=== PATIENT | female | born 1935 | race Caucasian/White ===

== ENCOUNTER 2022-05-31 09:57 | Emergency (ER) | payer OTHER ==
[~2022-05-31] VITALS: Ht 149.9 cm; Wt 61.2 kg
[2022-05-31 09:59] VITALS: BP 100/70
--- NOTE | 2022-05-31 10:13 | NUR ---
BIBA BLS TO ER BED 12
--- NOTE | 2022-05-31 10:53 | NUR ---
Pt bib bls for rigid mass at RLQ. Pt denies pain. Has constipation, has not passed stool for 3-5 days. Pt is a/o x 4, vss, no ss of acute distress, breathing equal and unlabored, speech clear, labs obtained. has seen pt. Pt to CT.
[2022-05-31 11:31] LABS: APPEARANCE,URINE CLEAR (CLEAR); BILIRUBIN,URINE NEGATIVE (NEGATIVE); BLOOD, URINE NEGATIVE (NEGATIVE); COLOR,URINE YELLOW (YELLOW); LEUKOCYTE ESTERASE ,URINE SMALL (NEGATIVE); NITRITE, URINE NEGATIVE (NEGATIVE); UGLUCOSE NEGATIVE (NEGATIVE)
[2022-05-31 11:40] LABS: RBC,URINE 0-5 /HPF (0-5); WBC,URINE 0-5 /HPF (0-5)
[2022-05-31 11:54] LABS: BASOPHILS # (AUTO) 0.1 K/uL (0.00-0.22); BASOPHILS % (AUTO) 2.7 % (0.0-2.0); EOSINOPHILS # (AUTO) 0.1 K/uL (0-0.4); EOSINOPHILS % (AUTO) 2.8 % (0.0-4.0); HEMATOCRIT 41.8 % (36-48); LYMPHOCYTES # (AUTO) 1.7 K/uL (2.5-16.5); MEAN CORPUSCULAR HEMOGLOBIN 31 pg (27-31); MEAN CORPUSCULAR HGB CONC 33 g/dL (33-37); MEAN CORPUSCULAR VOLUME 93.2 fL (80-94); MONOCYTES # (AUTO) 0.4 K/uL (0.8-1.0); MONOCYTES % (AUTO) 9.8 % (1.7-9.3); NEUTROPHILS # (AUTO) 1.5 K/uL (1.8-7.7); NEUTROPHILS % (AUTO) 39.7 % (42.2-75.2); PLATELET COUNT (AUTO) 336 K/uL (140-450); RED BLOOD CELL COUNT(AUTO) 4.48 MIL/uL (4.20-5.40); WHITE BLOOD COUNT (AUTO) 3.8 K/uL (4.8-10.8)
[2022-05-31 12:36] LABS: ALBUMIN 4.6 g/dL (3.4-5.0); ANION GAP 14.6 (8-16); ASPARTATE AMINOTRANSFERASE 28 U/L (15-37); CHLORIDE 102 mmol/L (98-107); CREATININE 1.1 mg/dL (0.6-1.3); GLUCOSE 91 mg/dL (74-106); LIPASE 215 U/L (73-393); POTASSIUM 4.6 mmol/L (3.5-5.1); SODIUM SERUM 141 mmol/L (136-145); TOTAL BILIRUBIN 0.5 mg/dL (0.0-1.0); UREA NITROGEN, BLOOD 24 mg/dL (7-18)
--- NOTE | 2022-05-31 13:20 | NUR ---
Report given to Gracy at [facility]. Pick scheduled for 1430 by them.
--- NOTE | 2022-05-31 14:27 | NUR ---
Patient discharged with v/s stable. Written and verbal after care instructions given and explained. Patient verbalized understanding. Ambulatory with [facility]SP[facility] to car. All questions addressed prior to discharge. Advised to follow up with PMD.
[2022-05-31 14:29] VITALS: BP 136/62
== END 2022-05-31 14:26 ==
LOC: MED 09:57
DX: R10.31 Right lower quadrant pain (principal); Z90.710 Acquired absence of both cervix and uterus
CPT/HCPCS: 36415; 80053; 81001; 83690; 85025; 87086; 99285

== ENCOUNTER 2022-06-22 13:53 | Emergency (ER) | payer OTHER ==
[~2022-06-22] VITALS: Ht 162.6 cm; Wt 54.4 kg
--- NOTE | 2022-06-22 14:02 | NUR ---
PATIENT BIBA TO BED 5.
[2022-06-22 14:21] VITALS: BP 121/65
[2022-06-22 14:36] LABS: BASOPHILS % (AUTO) 0.6 % (0.0-2.0); EOSINOPHILS % (AUTO) 0.7 % (0.0-4.0); HEMATOCRIT 38.4 % (36-48); LYMPHOCYTES # (AUTO) 1.2 K/uL (2.5-16.5); LYMPHOCYTES % (AUTO) 56.9 % (20.5-51.1); MEAN CORPUSCULAR HEMOGLOBIN 31 pg (27-31); MEAN CORPUSCULAR HGB CONC 34 g/dL (33-37); MEAN CORPUSCULAR VOLUME 92.1 fL (80-94); MONOCYTES # (AUTO) 0.2 K/uL (0.8-1.0); MONOCYTES % (AUTO) 12.1 % (1.7-9.3); NEUTROPHILS # (AUTO) 0.6 K/uL (1.8-7.7); NEUTROPHILS % (AUTO) 29.7 % (42.2-75.2); PLATELET COUNT (AUTO) 203 K/uL (140-450); RED BLOOD CELL COUNT(AUTO) 4.17 MIL/uL (4.20-5.40); RED CELL DISTRIBUTION WIDTH 13.7 % (11.6-13.7); WHITE BLOOD COUNT (AUTO) 2.1 K/uL (4.8-10.8)
[2022-06-22 15:03] LABS: ANION GAP 15.2 (8-16); CHLORIDE 101 mmol/L (98-107); CREATININE 1.2 mg/dL (0.6-1.3); GLUCOSE 102 mg/dL (74-106); POTASSIUM 4.2 mmol/L (3.5-5.1); SODIUM SERUM 136 mmol/L (136-145); UREA NITROGEN, BLOOD 27 mg/dL (7-18)
--- NOTE | 2022-06-22 15:30 | NUR ---
87 Y/O FEMALE BIBA FROM [facility] C/O RLQ ABD PAIN AND DIARRHEA X1 WEEK. PER PT SHE HAS BEEN HAVING A MASS X1 MONTH IN THE RLQ. DENIES ANY VOMITING OR NAUSEA. DENIES FEVER, CHILLS. NKA PMH: HTN
--- NOTE | 2022-06-22 16:01 | NUR ---
PT TAKEN TO CT
[2022-06-22 16:48] VITALS: BP 121/45
--- NOTE | 2022-06-22 17:33 | NUR ---
Patient discharged with v/s stable. Written and verbal after care instructions ABOUT ABD BLOATING given and explained. Patient verbalized understanding. Ambulatory with steady gait. All questions addressed prior to discharge. Advised to follow up with PMD. INFORMED STAFF OF [facility] PT DISCHARGE, TRANSPORT ARRANGED
== END 2022-06-22 17:33 ==
LOC: MED 13:53
DX: R10.31 Right lower quadrant pain (principal); R14.0 Abdominal distension (gaseous); Z79.899 Other long term (current) drug therapy
CPT/HCPCS: 36415; 74177; 80048; 85025; 99285; Q9967

== ENCOUNTER 2022-09-20 15:06 | Emergency (ER) | payer OTHER ==
[~2022-09-20] VITALS: Ht 157.5 cm; Wt 49.9 kg
[2022-09-20 15:07] VITALS: BP 135/72
--- NOTE | 2022-09-20 15:11 | NUR ---
Patient BIBA to bed 7.
--- NOTE | 2022-09-20 15:40 | NUR ---
Patient being evaluated by physician at bedside.
--- NOTE | 2022-09-20 15:45 | NUR ---
Patient ambulated to restroom with assistance. Urine sample obtained.
--- NOTE | 2022-09-20 15:50 | NUR ---
Lab at bedside.
[2022-09-20 16:05] LABS: APPEARANCE,URINE CLEAR (CLEAR); BILIRUBIN,URINE NEGATIVE (NEGATIVE); BLOOD, URINE NEGATIVE (NEGATIVE); COLOR,URINE YELLOW (YELLOW); LEUKOCYTE ESTERASE ,URINE NEGATIVE (NEGATIVE); NITRITE, URINE NEGATIVE (NEGATIVE); PH,URINE 6.5 (5.0-9.0); UGLUCOSE NEGATIVE (NEGATIVE)
[2022-09-20 16:06] LABS: BASOPHILS # (AUTO) 0.1 K/uL (0.00-0.22); BASOPHILS % (AUTO) 1.4 % (0.0-2.0); EOSINOPHILS # (AUTO) 0.1 K/uL (0-0.4); EOSINOPHILS % (AUTO) 1.8 % (0.0-4.0); HEMATOCRIT 36.5 % (36-48); HEMOGLOBIN 12.1 g/dL (12.0-16.0); LYMPHOCYTES # (AUTO) 1.3 K/uL (2.5-16.5); MEAN CORPUSCULAR HEMOGLOBIN 32 pg (27-31); MEAN CORPUSCULAR HGB CONC 33 g/dL (33-37); MONOCYTES # (AUTO) 0.7 K/uL (0.8-1.0); MONOCYTES % (AUTO) 17.6 % (1.7-9.3); NEUTROPHILS # (AUTO) 1.9 K/uL (1.8-7.7); NEUTROPHILS % (AUTO) 47.2 % (42.2-75.2); PLATELET COUNT (AUTO) 372 K/uL (140-450); RED BLOOD CELL COUNT(AUTO) 3.84 MIL/uL (4.20-5.40); RED CELL DISTRIBUTION WIDTH 12.6 % (11.6-13.7); WHITE BLOOD COUNT (AUTO) 4.1 K/uL (4.8-10.8)
--- NOTE | 2022-09-20 16:14 | NUR ---
X-Ray at bedside.
[2022-09-20 16:22] LABS: ALBUMIN 3.4 g/dL (3.4-5.0); ASPARTATE AMINOTRANSFERASE 19 U/L (15-37); CARBON DIOXIDE 28.3 mmol/L (21-32); CHLORIDE 103 mmol/L (98-107); GLUCOSE 105 mg/dL (74-106); POTASSIUM 4.3 mmol/L (3.5-5.1); SODIUM SERUM 139 mmol/L (136-145); TOTAL BILIRUBIN 0.4 mg/dL (0.0-1.0); UREA NITROGEN, BLOOD 20 mg/dL (7-18)
[2022-09-20 16:29] LABS: LIPASE 221 U/L (73-393)
[2022-09-20] MEDS ORDERED: ACET-2619 PO (17:00)
--- NOTE | 2022-09-20 18:01 | NUR ---
Patient was assisted to the restroom.
[2022-09-20 18:22] VITALS: BP 143/58
--- NOTE | 2022-09-20 18:22 | NUR ---
Patient discharged with v/s stable. Written and verbal after care instructions given. Patient alert, oriented and verbalized understanding of instructions. Ambulance Transport with to skilled nursing. All questions addressed prior to discharge. ID band removed. Patient advised to follow up with PMD. Rx of Tylenol given. Opportunity to ask questions provided and answered.
== END 2022-09-20 18:22 | disposition home or self-care (01) ==
LOC: MED 15:06
DX: J18.9 Pneumonia, unspecified organism (principal); M79.10 Myalgia, unspecified site; R50.9 Fever, unspecified; R05.9 Cough, unspecified; I10 Essential (primary) hypertension; F03.90 Unspecified dementia, unspecified severity, without behavioral disturbance, psychotic disturbance, mood disturbance, and anxiety; F32.9 Major depressive disorder, single episode, unspecified; Z85.828 Personal history of other malignant neoplasm of skin; Z79.899 Other long term (current) drug therapy; Z90.710 Acquired absence of both cervix and uterus; Z20.822 Contact with and (suspected) exposure to COVID-19
CPT/HCPCS: 36415; 71045; 80053; 81003; 83605; 83690; 83880; 84484; 85025; 87040; 93005; 99285

== ENCOUNTER 2022-12-10 19:00 | Emergency (ER) | payer OTHER ==
[~2022-12-10] VITALS: Ht 157.5 cm; Wt 46.3 kg
[~2022-12-10 19:00] MED LIST: ACET-2619 PO
[2022-12-10 19:03] VITALS: BP 108/62; PULSE 60; RESP 15; TEMP 98; O2SAT 97
[2022-12-10] MEDS ORDERED: NACL 0.9% 500 ML IV ONE (19:35)
[2022-12-10 20:00] VITALS: BP 137/79; PULSE 78; RESP 18; O2SAT 98
[2022-12-10 20:05] LABS: APPEARANCE,URINE CLEAR (CLEAR); BILIRUBIN,URINE NEGATIVE (NEGATIVE); BLOOD, URINE NEGATIVE (NEGATIVE); COLOR,URINE YELLOW (YELLOW); LEUKOCYTE ESTERASE ,URINE NEGATIVE (NEGATIVE); NITRITE, URINE NEGATIVE (NEGATIVE); PH,URINE 5.5 (5.0-9.0); PROTEIN,URINE NEGATIVE (NEGATIVE); UGLUCOSE NEGATIVE (NEGATIVE); UROBILINOGEN,URINE 0.2 EU/dL (0.2 - 1)
[2022-12-10 20:06] LABS: HEMOGLOBIN 12.8 g/dL (12.0-16.0)
[2022-12-10 20:12] LABS: BASOPHILS # (AUTO) 0.1 K/uL (0.00-0.22); BASOPHILS % (AUTO) 1.7 % (0.0-2.0); EOSINOPHILS # (AUTO) 0.2 K/uL (0-0.4); EOSINOPHILS % (AUTO) 3.9 % (0.0-4.0); HEMATOCRIT 38.8 % (36-48); LYMPHOCYTES % (AUTO) 52.4 % (20.5-51.1); MEAN CORPUSCULAR HEMOGLOBIN 30 pg (27-31); MEAN CORPUSCULAR HGB CONC 33 g/dL (33-37); MEAN CORPUSCULAR VOLUME 89.6 fL (80-94); MONOCYTES # (AUTO) 0.5 K/uL (0.8-1.0); MONOCYTES % (AUTO) 13.1 % (1.7-9.3); NEUTROPHILS # (AUTO) 1.1 K/uL (1.8-7.7); NEUTROPHILS % (AUTO) 28.9 % (42.2-75.2); PLATELET COUNT (AUTO) 277 K/uL (140-450); RED BLOOD CELL COUNT(AUTO) 4.34 MIL/uL (4.20-5.40); RED CELL DISTRIBUTION WIDTH 14.2 % (11.6-13.7); WHITE BLOOD COUNT (AUTO) 3.9 K/uL (4.8-10.8)
[2022-12-10 20:20] LABS: ALANINE AMINOTRANSFERASE 17 U/L (12-78); ALBUMIN 3.7 g/dL (3.4-5.0); ALKALINE PHOSPHATASE 121 U/L (50-136); ANION GAP 13.5 (8-16); ASPARTATE AMINOTRANSFERASE 19 U/L (15-37); CALCIUM 8.6 mg/dL (8.5-10.1); CARBON DIOXIDE 26.4 mmol/L (21-32); CHLORIDE 105 mmol/L (98-107); CREATININE 1.3 mg/dL (0.6-1.3); GLUCOSE 88 mg/dL (74-106); LIPASE 322 U/L (73-393); POTASSIUM 3.9 mmol/L (3.5-5.1); SODIUM SERUM 141 mmol/L (136-145); TOTAL BILIRUBIN 0.2 mg/dL (0.0-1.0); TOTAL PROTEIN, SERUM 7.5 g/dL (6.4-8.2); UREA NITROGEN, BLOOD 22 mg/dL (7-18)
== END 2022-12-10 22:34 | disposition home or self-care (01) ==
LOC: MED 19:00
DX: R10.9 Unspecified abdominal pain (principal); R19.7 Diarrhea, unspecified; F03.90 Unspecified dementia, unspecified severity, without behavioral disturbance, psychotic disturbance, mood disturbance, and anxiety; I10 Essential (primary) hypertension; Z79.899 Other long term (current) drug therapy; Z85.828 Personal history of other malignant neoplasm of skin; Z90.710 Acquired absence of both cervix and uterus
CPT/HCPCS: 36415; 74176; 80053; 81003; 83690; 85025; 96360; 99284; J7030

== ENCOUNTER 2023-01-07 13:10 | Emergency (ER) | payer OTHER ==
[~2023-01-07] VITALS: Ht 162.6 cm; Wt 63.5 kg
[2023-01-07 13:32] VITALS: BP 114/56; PULSE 56; RESP 18; TEMP 98; O2SAT 98
[2023-01-07 14:40] LABS: BASOPHILS # (AUTO) 0.1 K/uL (0.00-0.22); BASOPHILS % (AUTO) 1.5 % (0.0-2.0); EOSINOPHILS # (AUTO) 0.1 K/uL (0-0.4); HEMOGLOBIN 12.2 g/dL (12.0-16.0); LYMPHOCYTES # (AUTO) 1.6 K/uL (2.5-16.5); LYMPHOCYTES % (AUTO) 41.7 % (20.5-51.1); MEAN CORPUSCULAR HEMOGLOBIN 30 pg (27-31); MEAN CORPUSCULAR HGB CONC 33 g/dL (33-37); MONOCYTES # (AUTO) 0.5 K/uL (0.8-1.0); MONOCYTES % (AUTO) 13.3 % (1.7-9.3); NEUTROPHILS # (AUTO) 1.6 K/uL (1.8-7.7); NEUTROPHILS % (AUTO) 40.5 % (42.2-75.2); PLATELET COUNT (AUTO) 286 K/uL (140-450); RED BLOOD CELL COUNT(AUTO) 4.07 MIL/uL (4.20-5.40); RED CELL DISTRIBUTION WIDTH 17.1 % (11.6-13.7); WHITE BLOOD COUNT (AUTO) 3.9 K/uL (4.8-10.8)
[2023-01-07 14:50] LABS: APPEARANCE,URINE CLEAR (CLEAR); BILIRUBIN,URINE NEGATIVE (NEGATIVE); BLOOD, URINE NEGATIVE (NEGATIVE); COLOR,URINE YELLOW (YELLOW); LEUKOCYTE ESTERASE ,URINE NEGATIVE (NEGATIVE); NITRITE, URINE NEGATIVE (NEGATIVE); PROTEIN,URINE NEGATIVE (NEGATIVE); UGLUCOSE NEGATIVE (NEGATIVE); UROBILINOGEN,URINE 0.2 EU/dL (0.2 - 1)
[2023-01-07 14:59] LABS: ALANINE AMINOTRANSFERASE 17 U/L (12-78); ALBUMIN 3.5 g/dL (3.4-5.0); ALKALINE PHOSPHATASE 96 U/L (50-136); ANION GAP 10.2 (8-16); ASPARTATE AMINOTRANSFERASE 18 U/L (15-37); CHLORIDE 107 mmol/L (98-107); CREATININE 1.3 mg/dL (0.6-1.3); GLUCOSE 95 mg/dL (74-106); LIPASE 176 U/L (73-393); POTASSIUM 4.2 mmol/L (3.5-5.1); SODIUM SERUM 140 mmol/L (136-145); TOTAL BILIRUBIN 0.3 mg/dL (0.0-1.0); TOTAL PROTEIN, SERUM 6.9 g/dL (6.4-8.2); UREA NITROGEN, BLOOD 20 mg/dL (7-18)
[2023-01-07] MEDS ORDERED: LOPE-289 PO (15:52)
[2023-01-07] MEDS ORDERED: CIPR500T4 PO (15:52)
[2023-01-07] MEDS ORDERED: IBUP-2213 PO (15:52)
[2023-01-07 15:56] VITALS: BP 114/56; PULSE 56; RESP 18; TEMP 98; O2SAT 98
== END 2023-01-07 16:01 | disposition home or self-care (01) ==
LOC: MED 13:10
DX: R10.30 Lower abdominal pain, unspecified (principal); R19.7 Diarrhea, unspecified; I10 Essential (primary) hypertension; F03.90 Unspecified dementia, unspecified severity, without behavioral disturbance, psychotic disturbance, mood disturbance, and anxiety; Z79.899 Other long term (current) drug therapy; Z90.710 Acquired absence of both cervix and uterus
CPT/HCPCS: 36415; 80053; 81003; 83690; 85025; 99284

== ENCOUNTER 2023-01-29 20:12 | Inpatient (IN) | payer OTHER ==
[~2023-01-29] VITALS: Ht 152.4 cm; Wt 55.8 kg
[~2023-01-29 20:12] MED LIST changes: +CIPR500T4 PO; +IBUP-2213 PO; +LOPE-289 PO
[2023-01-29 20:25] VITALS: BP 124/88; PULSE 58; RESP 16; TEMP 97.5; O2SAT 98
[2023-01-29] MEDS ORDERED: cefTRIAXone 1,000 MG in DEXT 5% MINI-BAG PLUS 50 ML IV ONE (20:30)
[2023-01-29] MEDS ORDERED: NACL 0.9% 1,000 ML IV SCH (20:30)
[2023-01-29 20:35] VITALS: O2SAT 97
[2023-01-29 21:24] LABS: BASOPHILS # (AUTO) 0.1 K/uL (0.00-0.22); BASOPHILS % (AUTO) 1.9 % (0.0-2.0); EOSINOPHILS # (AUTO) 0.1 K/uL (0-0.4); EOSINOPHILS % (AUTO) 2.6 % (0.0-4.0); HEMATOCRIT 34.2 % (36-48); HEMOGLOBIN 11.5 g/dL (12.0-16.0); LYMPHOCYTES # (AUTO) 1.2 K/uL (2.5-16.5); LYMPHOCYTES % (AUTO) 27.1 % (20.5-51.1); MEAN CORPUSCULAR HEMOGLOBIN 31 pg (27-31); MEAN CORPUSCULAR HGB CONC 34 g/dL (33-37); MEAN CORPUSCULAR VOLUME 91.7 fL (80-94); MONOCYTES # (AUTO) 0.4 K/uL (0.8-1.0); MONOCYTES % (AUTO) 9.4 % (1.7-9.3); NEUTROPHILS # (AUTO) 2.6 K/uL (1.8-7.7); PLATELET COUNT (AUTO) 278 K/uL (140-450); RED BLOOD CELL COUNT(AUTO) 3.74 MIL/uL (4.20-5.40); RED CELL DISTRIBUTION WIDTH 16.3 % (11.6-13.7); WHITE BLOOD COUNT (AUTO) 4.4 K/uL (4.8-10.8)
[2023-01-29 21:36] LABS: INR 0.95 (0.8-1.2); PARTIAL THROMBOPLASTIN TIME 26.1 secs (22-35.6)
[2023-01-29 21:39] LABS: ALANINE AMINOTRANSFERASE 15 U/L (12-78); ALBUMIN 3.4 g/dL (3.4-5.0); ALKALINE PHOSPHATASE 90 U/L (50-136); ANION GAP 13.3 (8-16); ASPARTATE AMINOTRANSFERASE 14 U/L (15-37); CALCIUM 8.6 mg/dL (8.5-10.1); CARBON DIOXIDE 24.6 mmol/L (21-32); CHLORIDE 106 mmol/L (98-107); CREATININE 1.1 mg/dL (0.6-1.3); GLUCOSE 135 mg/dL (74-106); POTASSIUM 3.9 mmol/L (3.5-5.1); SODIUM SERUM 140 mmol/L (136-145); TOTAL BILIRUBIN 0.2 mg/dL (0.0-1.0); TOTAL PROTEIN, SERUM 6.7 g/dL (6.4-8.2); UREA NITROGEN, BLOOD 22 mg/dL (7-18)
[2023-01-29 21:44] LABS: LACTIC ACID 0.7 mmol/L (0.4-2.0)
[2023-01-29] MEDS ORDERED: cefTRIAXone 1,000 MG VIAL ONE (22:06)
[2023-01-29 23:47] LABS: APPEARANCE,URINE CLEAR (CLEAR); BILIRUBIN,URINE NEGATIVE (NEGATIVE); BLOOD, URINE NEGATIVE (NEGATIVE); COLOR,URINE YELLOW (YELLOW); LEUKOCYTE ESTERASE ,URINE NEGATIVE (NEGATIVE); NITRITE, URINE NEGATIVE (NEGATIVE); PROTEIN,URINE NEGATIVE (NEGATIVE); UGLUCOSE NEGATIVE (NEGATIVE); UROBILINOGEN,URINE 0.2 EU/dL (0.2 - 1)
[2023-01-30 00:09] LABS: BACTERIA,URINE OCCASSIONAL /HPF (None Seen); RBC,URINE NONE SEEN /HPF (0-5); WBC,URINE NONE SEEN /HPF (0-5)
[2023-01-30 01:22] VITALS: O2SAT 97
[2023-01-30 04:07] VITALS: O2SAT 97
[2023-01-30] MEDS ORDERED: ZOLPIDEM 5 MG TAB PO PRN (08:20)
[2023-01-30] MEDS: DEXT 5% /NACL 0.9% 1,000 ML IV SCH ×2 (08:20→20:06)
[2023-01-30] MEDS ORDERED: DOCUSATE SODIUM 100 MG GELCAP PO PRN (08:20)
[2023-01-30] MEDS ORDERED: ACETAMINOPHEN 325 MG TAB PO PRN (08:20)
[2023-01-30] MEDS ORDERED: HYDROcodone/APAP 7.5/325 MG 1 TAB PO PRN (08:20)
[2023-01-30] MEDS ORDERED: ONDANSETRON 4 MG/2 ML VIAL IM/IVP PRN (08:20)
[2023-01-30] MEDS ORDERED: POTASSIUM CHLORIDE 10 MEQ TABER PO PRN (08:20)
[2023-01-30] MEDS ORDERED: guaiFENesin DM 200/20 MG-10 ML 10 ML UDC PO PRN (08:20)
[2023-01-30 09:42] LABS: INR 0.96 (0.8-1.2); PARTIAL THROMBOPLASTIN TIME 27.1 secs (22-35.6); PROTHROMBIN TIME 10.1 secs (10.8-13.4)
[2023-01-30 09:53] LABS: CHOL/HDL RATIO 2.8 (1-4.5); FREE T4 (FREE THYROXINE) 0.83 ng/dL (0.76-1.46); MAGNESIUM 2.1 mg/dL (1.8-2.4); PHOSPHORUS 3.1 mg/dL (2.5-4.9); THYROID STIMULATING HORMONE 1.68 uIU/mL (0.34-3.74)
[2023-01-30] MEDS: PANTOPRAZOLE 40 MG TABEC PO SCH (10:11)
[2023-01-30] MEDS ORDERED: HALOPERIDOL IM 5 MG/ML VIAL IM ONE (23:35)
[2023-01-31] MEDS: DEXT 5% /NACL 0.9% 1,000 ML IV SCH (07:52)
[2023-01-31 07:58] LABS: BASOPHILS # (AUTO) 0.1 K/uL (0.00-0.22); BASOPHILS % (AUTO) 2.6 % (0.0-2.0); EOSINOPHILS # (AUTO) 0.2 K/uL (0-0.4); EOSINOPHILS % (AUTO) 5.5 % (0.0-4.0); HEMATOCRIT 37.3 % (36-48); HEMOGLOBIN 12.4 g/dL (12.0-16.0); LYMPHOCYTES # (AUTO) 1.8 K/uL (2.5-16.5); LYMPHOCYTES % (AUTO) 52.3 % (20.5-51.1); MEAN CORPUSCULAR HEMOGLOBIN 31 pg (27-31); MEAN CORPUSCULAR HGB CONC 33 g/dL (33-37); MEAN CORPUSCULAR VOLUME 91.6 fL (80-94); MONOCYTES # (AUTO) 0.4 K/uL (0.8-1.0); MONOCYTES % (AUTO) 11.9 % (1.7-9.3); NEUTROPHILS % (AUTO) 27.7 % (42.2-75.2); PLATELET COUNT (AUTO) 287 K/uL (140-450); RED BLOOD CELL COUNT(AUTO) 4.08 MIL/uL (4.20-5.40); RED CELL DISTRIBUTION WIDTH 16.6 % (11.6-13.7); WHITE BLOOD COUNT (AUTO) 3.5 K/uL (4.8-10.8)
[2023-01-31 08:39] LABS: ANION GAP 12.2 (8-16); CALCIUM 8.7 mg/dL (8.5-10.1); CHLORIDE 108 mmol/L (98-107); CREATININE 0.9 mg/dL (0.6-1.3); GLUCOSE 88 mg/dL (74-106); POTASSIUM 4.2 mmol/L (3.5-5.1); SODIUM SERUM 142 mmol/L (136-145); UREA NITROGEN, BLOOD 15 mg/dL (7-18)
[2023-01-31 09:00] VITALS: RESP 18; O2SAT 95; O2SAT 98
[2023-01-31 09:07] LABS: T4 (THYROXINE) 5.1 ug/dL (4.5-12.0)
[2023-01-31] MEDS: PANTOPRAZOLE 40 MG TABEC PO SCH (09:15)
[2023-01-31 12:00] VITALS: BP 153/92; PULSE 56; RESP 18; TEMP 97.7; O2SAT 98
[2023-01-31 15:09] VITALS: O2SAT 99
[2023-01-31 16:00] VITALS: BP 115/58; PULSE 57; RESP 18; TEMP 97.6; O2SAT 99
[2023-01-31 20:00] VITALS: PULSE 61; RESP 18; O2SAT 99
[2023-02-01] VITALS: BP 117/61; PULSE 61; RESP 18; TEMP 98; O2SAT 99
[2023-02-01] MEDS: DEXT 5% /NACL 0.9% 1,000 ML IV SCH ×2 (00:19→08:11)
[2023-02-01 05:33] LABS: BASOPHILS # (AUTO) 0.1 K/uL (0.00-0.22); BASOPHILS % (AUTO) 1.9 % (0.0-2.0); EOSINOPHILS # (AUTO) 0.2 K/uL (0-0.4); EOSINOPHILS % (AUTO) 4.7 % (0.0-4.0); LYMPHOCYTES # (AUTO) 2.1 K/uL (2.5-16.5); LYMPHOCYTES % (AUTO) 54.6 % (20.5-51.1); MEAN CORPUSCULAR HEMOGLOBIN 31 pg (27-31); MEAN CORPUSCULAR HGB CONC 33 g/dL (33-37); MEAN CORPUSCULAR VOLUME 91.2 fL (80-94); MONOCYTES # (AUTO) 0.5 K/uL (0.8-1.0); NEUTROPHILS # (AUTO) 1.1 K/uL (1.8-7.7); NEUTROPHILS % (AUTO) 26.8 % (42.2-75.2); PLATELET COUNT (AUTO) 283 K/uL (140-450); RED BLOOD CELL COUNT(AUTO) 3.94 MIL/uL (4.20-5.40); WHITE BLOOD COUNT (AUTO) 3.9 K/uL (4.8-10.8)
[2023-02-01 05:49] LABS: ANION GAP 11.4 (8-16); CALCIUM 8.5 mg/dL (8.5-10.1); CARBON DIOXIDE 26.6 mmol/L (21-32); CHLORIDE 108 mmol/L (98-107); CREATININE 0.9 mg/dL (0.6-1.3); GLUCOSE 90 mg/dL (74-106); SODIUM SERUM 142 mmol/L (136-145); UREA NITROGEN, BLOOD 19 mg/dL (7-18)
[2023-02-01 06:08] LABS: HEMOGLOBIN A1C 5.4 % (4.8-5.6)
[2023-02-01] MEDS: PANTOPRAZOLE 40 MG TABEC PO SCH (08:10)
[2023-02-01 08:48] VITALS: BP 110/50; PULSE 61; RESP 16; TEMP 96.7; O2SAT 95
[2023-02-01 08:51] VITALS: PULSE 61; RESP 16; O2SAT 95
[2023-02-01 11:15] VITALS: O2SAT 96
== END 2023-02-01 12:54 | DRG 640 ==
LOC: MED 20:12 → MTU 01-30 02:48 → MED 01-30 02:48 → MTU 01-31 05:27
PROVIDERS: ADMIT Family Medicine; ATTEND Family Medicine
DX: E86.0 Dehydration (principal); G93.41 Metabolic encephalopathy; F03.90 Unspecified dementia, unspecified severity, without behavioral disturbance, psychotic disturbance, mood disturbance, and anxiety; D64.9 Anemia, unspecified; I10 Essential (primary) hypertension; Z91.81 History of falling; Z85.828 Personal history of other malignant neoplasm of skin
CPT/HCPCS: 36415; 70450; 71045; 80048; 80053; 81001; 82150; 83036; 83605; 83690; 83735; 83880; 84100; 84436; 84439; 84443; 84479; 84484; 85025; 85610; 85730; 87040; 87081; 87086; 93005; 96361; 96365; 96372; 99285; J0696; J1630

== ENCOUNTER 2023-02-14 20:28 | Emergency (ER) | payer OTHER ==
[~2023-02-14] VITALS: Ht 157.5 cm; Wt 56.7 kg
[~2023-02-14 20:28] MED LIST changes: -IBUP-2213 PO
[2023-02-14 20:30] VITALS: BP 115/61; PULSE 58; RESP 16; TEMP 98; O2SAT 95
[2023-02-14] MEDS ORDERED: PRED50TA2 PO (21:18)
[2023-02-14] MEDS ORDERED: DIPH25TA53 PO (21:18)
== END 2023-02-14 22:38 | disposition home or self-care (01) ==
LOC: MED 20:28
DX: R21 Rash and other nonspecific skin eruption (principal); F03.90 Unspecified dementia, unspecified severity, without behavioral disturbance, psychotic disturbance, mood disturbance, and anxiety; I10 Essential (primary) hypertension; Z79.899 Other long term (current) drug therapy
CPT/HCPCS: 99283

== ENCOUNTER 2023-06-28 13:53 | Inpatient (IN) | payer OTHER ==
[~2023-06-28] VITALS: Ht 149.9 cm; Wt 45.4 kg
[~2023-06-28 13:53] MED LIST changes: +DIPH25TA53 PO; +PRED50TA2 PO
[2023-06-28 13:57] VITALS: BP 132/63; PULSE 82; RESP 18; TEMP 98; O2SAT 95
[2023-06-28 14:40] LABS: BASOPHILS # (AUTO) 0.1 K/uL (0.00-0.22); BASOPHILS % (AUTO) 1.9 % (0.0-2.0); EOSINOPHILS # (AUTO) 0.1 K/uL (0-0.4); EOSINOPHILS % (AUTO) 2.6 % (0.0-4.0); HEMATOCRIT 35.9 % (36-48); HEMOGLOBIN 12.1 g/dL (12.0-16.0); LYMPHOCYTES # (AUTO) 1.6 K/uL (2.5-16.5); LYMPHOCYTES % (AUTO) 38.7 % (20.5-51.1); MEAN CORPUSCULAR HEMOGLOBIN 32 pg (27-31); MEAN CORPUSCULAR HGB CONC 34 g/dL (33-37); MEAN CORPUSCULAR VOLUME 95.2 fL (80-94); MONOCYTES # (AUTO) 0.4 K/uL (0.8-1.0); MONOCYTES % (AUTO) 9.8 % (1.7-9.3); NEUTROPHILS # (AUTO) 1.9 K/uL (1.8-7.7); PLATELET COUNT (AUTO) 265 K/uL (140-450); RED BLOOD CELL COUNT(AUTO) 3.77 MIL/uL (4.20-5.40); RED CELL DISTRIBUTION WIDTH 14.7 % (11.6-13.7)
[2023-06-28 15:02] LABS: ALANINE AMINOTRANSFERASE 11 U/L (12-78); ALBUMIN 3.2 g/dL (3.4-5.0); ALKALINE PHOSPHATASE 80 U/L (50-136); ANION GAP 9.1 (8-16); ASPARTATE AMINOTRANSFERASE 15 U/L (15-37); CALCIUM 8.9 mg/dL (8.5-10.1); CARBON DIOXIDE 27.7 mmol/L (21-32); CHLORIDE 109 mmol/L (98-107); CREATININE 0.9 mg/dL (0.6-1.3); GLUCOSE 100 mg/dL (74-106); POTASSIUM 4.8 mmol/L (3.5-5.1); SODIUM SERUM 141 mmol/L (136-145); TOTAL BILIRUBIN 0.4 mg/dL (0.0-1.0); TOTAL PROTEIN, SERUM 7.2 g/dL (6.4-8.2); UREA NITROGEN, BLOOD 12 mg/dL (7-18)
[2023-06-28 15:09] LABS: LIPASE 45 U/L (16-77)
[2023-06-28] MEDS ORDERED: ACET-2619 PO (16:56)
[2023-06-28] MEDS ORDERED: AMLO2.5T PO (16:57)
[2023-06-28] MEDS ORDERED: CYCL-711 PO (16:58)
[2023-06-28] MEDS ORDERED: MEMA5TAB PO (16:59)
[2023-06-28] MEDS ORDERED: SERT25TA PO (17:00)
[2023-06-28] MEDS ORDERED: ACETAMINOPHEN 325 MG TAB PO PRN (17:50)
[2023-06-28] MEDS ORDERED: POLYETHYLENE GLYCOL 17 GM/PKT PO PRN (17:50)
[2023-06-28] MEDS ORDERED: MAG SULF 2000 MG/WATER PREMIX 50 ML IV PRN (17:50)
[2023-06-28] MEDS ORDERED: KCL 20 MEQ IN 100 mL PREMIX 200 ML IV PRN (17:50)
[2023-06-28] MEDS ORDERED: ONDANSETRON 4 MG/2 ML VIAL IVP PRN (17:50)
[2023-06-28] MEDS ORDERED: MORPHINE SULFATE 2 MG/ML SYR IVP PRN (17:50)
[2023-06-28] MEDS: DEXT 5% / NACL 0.45% 1,000 ML IV SCH (20:00)
[2023-06-28 20:25] VITALS: PULSE 58; RESP 17; O2SAT 97
[2023-06-28] MEDS: MELATONIN 3 MG TAB PO PRN (23:56)
[2023-06-29 04:00] VITALS: BP 146/64; PULSE 52; PULSE 95; RESP 16; TEMP 97.9; O2SAT 93
[2023-06-29] MEDS: HYDROcodone/APAP 5/325 MG 1 TAB TAB PO PRN (05:34)
[2023-06-29 06:42] LABS: BASOPHILS # (AUTO) 0.1 K/uL (0.00-0.22); BASOPHILS % (AUTO) 1.3 % (0.0-2.0); EOSINOPHILS # (AUTO) 0.1 K/uL (0-0.4); EOSINOPHILS % (AUTO) 2.4 % (0.0-4.0); HEMATOCRIT 35.8 % (36-48); LYMPHOCYTES # (AUTO) 1.9 K/uL (2.5-16.5); LYMPHOCYTES % (AUTO) 37.6 % (20.5-51.1); MEAN CORPUSCULAR HEMOGLOBIN 32 pg (27-31); MEAN CORPUSCULAR HGB CONC 34 g/dL (33-37); MEAN CORPUSCULAR VOLUME 95.1 fL (80-94); MONOCYTES # (AUTO) 0.5 K/uL (0.8-1.0); MONOCYTES % (AUTO) 10.4 % (1.7-9.3); NEUTROPHILS # (AUTO) 2.4 K/uL (1.8-7.7); NEUTROPHILS % (AUTO) 48.3 % (42.2-75.2); PLATELET COUNT (AUTO) 251 K/uL (140-450); RED BLOOD CELL COUNT(AUTO) 3.76 MIL/uL (4.20-5.40); RED CELL DISTRIBUTION WIDTH 14.3 % (11.6-13.7)
[2023-06-29 07:04] LABS: ALANINE AMINOTRANSFERASE 11 U/L (12-78); ALBUMIN 3.2 g/dL (3.4-5.0); ALKALINE PHOSPHATASE 78 U/L (50-136); ANION GAP 12.8 (8-16); ASPARTATE AMINOTRANSFERASE 16 U/L (15-37); CALCIUM 8.9 mg/dL (8.5-10.1); CARBON DIOXIDE 25.3 mmol/L (21-32); CHLORIDE 107 mmol/L (98-107); CREATININE 0.8 mg/dL (0.6-1.3); GLUCOSE 93 mg/dL (74-106); MAGNESIUM 2.1 mg/dL (1.8-2.4); PHOSPHORUS 3.7 mg/dL (2.5-4.9); POTASSIUM 4.1 mmol/L (3.5-5.1); SODIUM SERUM 141 mmol/L (136-145); TOTAL BILIRUBIN 0.3 mg/dL (0.0-1.0); TOTAL PROTEIN, SERUM 7.1 g/dL (6.4-8.2); UREA NITROGEN, BLOOD 10 mg/dL (7-18)
[2023-06-29 08:00] VITALS: BP 120/57; PULSE 54; RESP 18; TEMP 97.7; O2SAT 97
[2023-06-29 10:10] VITALS: PULSE 52; RESP 18; O2SAT 97
[2023-06-29 11:46] VITALS: BP_SYST 121; BP_SYST 147; BP_SYST 154; BP_DIAS 58; BP_DIAS 65; BP_DIAS 67; PULSE 57; RESP 18; TEMP 97.3; O2SAT 99
[2023-06-29 16:34] VITALS: BP 150/74; PULSE 68; RESP 18; TEMP 97; O2SAT 97
[2023-06-29 20:00] VITALS: BP 105/65; PULSE 71; RESP 18; TEMP 97.4; O2SAT 94; O2SAT 97
[2023-06-29] MEDS: MEMANTINE 10 MG TAB PO SCH (20:13)
[2023-06-30] VITALS (8 sets, daily range): BP systolic 85–124; BP diastolic 50–76; PULSE 56–68; RESP 18–19; TEMP 97.4–97.9; O2SAT 96–98
[2023-06-30 06:43] LABS: BASOPHILS # (AUTO) 0.1 K/uL (0.00-0.22); BASOPHILS % (AUTO) 1.9 % (0.0-2.0); EOSINOPHILS # (AUTO) 0.1 K/uL (0-0.4); EOSINOPHILS % (AUTO) 2.8 % (0.0-4.0); HEMATOCRIT 35.5 % (36-48); HEMOGLOBIN 12.1 g/dL (12.0-16.0); LYMPHOCYTES # (AUTO) 1.8 K/uL (2.5-16.5); LYMPHOCYTES % (AUTO) 48.7 % (20.5-51.1); MEAN CORPUSCULAR HEMOGLOBIN 32 pg (27-31); MEAN CORPUSCULAR HGB CONC 34 g/dL (33-37); MEAN CORPUSCULAR VOLUME 94.3 fL (80-94); MONOCYTES # (AUTO) 0.5 K/uL (0.8-1.0); MONOCYTES % (AUTO) 12.6 % (1.7-9.3); NEUTROPHILS # (AUTO) 1.3 K/uL (1.8-7.7); PLATELET COUNT (AUTO) 256 K/uL (140-450); RED BLOOD CELL COUNT(AUTO) 3.76 MIL/uL (4.20-5.40); RED CELL DISTRIBUTION WIDTH 14.5 % (11.6-13.7); WHITE BLOOD COUNT (AUTO) 3.7 K/uL (4.8-10.8)
[2023-06-30 07:06] LABS: ALANINE AMINOTRANSFERASE 15 U/L (12-78); ALBUMIN 3.2 g/dL (3.4-5.0); ALKALINE PHOSPHATASE 78 U/L (50-136); ANION GAP 14.8 (8-16); ASPARTATE AMINOTRANSFERASE 15 U/L (15-37); CALCIUM 8.9 mg/dL (8.5-10.1); CARBON DIOXIDE 24.5 mmol/L (21-32); CHLORIDE 105 mmol/L (98-107); CREATININE 1.1 mg/dL (0.6-1.3); GLUCOSE 92 mg/dL (74-106); MAGNESIUM 2.1 mg/dL (1.8-2.4); PHOSPHORUS 4.4 mg/dL (2.5-4.9); POTASSIUM 4.3 mmol/L (3.5-5.1); SODIUM SERUM 140 mmol/L (136-145); TOTAL BILIRUBIN 0.5 mg/dL (0.0-1.0); TOTAL PROTEIN, SERUM 7.2 g/dL (6.4-8.2); UREA NITROGEN, BLOOD 25 mg/dL (7-18)
[2023-06-30] MEDS: SERTRALINE 50 MG TAB PO SCH (08:17)
[2023-06-30] MEDS: amLODIPine 5 MG TAB PO SCH (08:20)
[2023-06-30] MEDS: NACL 0.9% 500 ML IV ONE (14:03)
[2023-07-01] MEDS ORDERED: ACET-10509 PO (04:44)
== END 2023-06-30 15:24 | disposition home or self-care (01) | DRG 312 ==
LOC: MED 13:53 → MTU 17:48
PROVIDERS: ADMIT Family Medicine; ATTEND Family Medicine
DX: I95.1 Orthostatic hypotension (principal); S00.03XA Contusion of scalp, initial encounter; R00.1 Bradycardia, unspecified; F03.90 Unspecified dementia, unspecified severity, without behavioral disturbance, psychotic disturbance, mood disturbance, and anxiety; I10 Essential (primary) hypertension; F32.A Depression, unspecified; Z85.828 Personal history of other malignant neoplasm of skin
CPT/HCPCS: 36415; 70450; 71045; 73030; 80053; 83690; 83735; 83880; 84100; 84484; 85025; 85379; 87081; 92526; 93005; 97116; 97163-GP; 99285; J1644

== ENCOUNTER 2023-06-30 21:50 | Emergency (ER) | payer OTHER ==
[~2023-06-30] VITALS: Ht 162.6 cm; Wt 59.0 kg
[~2023-06-30 21:50] MED LIST changes: +AMLO2.5T PO; +CYCL-711 PO; +MEMA5TAB PO; +SERT25TA PO
[2023-06-30 22:14] VITALS: BP 116/60; PULSE 82; RESP 16; TEMP 97.8; O2SAT 94
[2023-06-30 22:16] VITALS: O2SAT 98
[2023-06-30 22:41] LABS: BASOPHILS # (AUTO) 0.1 K/uL (0.00-0.22); EOSINOPHILS # (AUTO) 0.2 K/uL (0-0.4); EOSINOPHILS % (AUTO) 3.7 % (0.0-4.0); HEMOGLOBIN 11.6 g/dL (12.0-16.0); LYMPHOCYTES # (AUTO) 1.3 K/uL (2.5-16.5); MEAN CORPUSCULAR HEMOGLOBIN 32 pg (27-31); MEAN CORPUSCULAR HGB CONC 34 g/dL (33-37); MONOCYTES # (AUTO) 0.6 K/uL (0.8-1.0); MONOCYTES % (AUTO) 15.3 % (1.7-9.3); NEUTROPHILS # (AUTO) 1.9 K/uL (1.8-7.7); PLATELET COUNT (AUTO) 239 K/uL (140-450); RED BLOOD CELL COUNT(AUTO) 3.58 MIL/uL (4.20-5.40); RED CELL DISTRIBUTION WIDTH 14.7 % (11.6-13.7); WHITE BLOOD COUNT (AUTO) 4.2 K/uL (4.8-10.8)
[2023-06-30 22:46] LABS: APPEARANCE,URINE CLEAR (CLEAR); BILIRUBIN,URINE NEGATIVE (NEGATIVE); BLOOD, URINE NEGATIVE (NEGATIVE); COLOR,URINE YELLOW (YELLOW); LEUKOCYTE ESTERASE ,URINE NEGATIVE (NEGATIVE); NITRITE, URINE NEGATIVE (NEGATIVE); PROTEIN,URINE NEGATIVE (NEGATIVE); UGLUCOSE NEGATIVE (NEGATIVE); UROBILINOGEN,URINE 0.2 EU/dL (0.2 - 1)
[2023-06-30 23:01] LABS: INR 1.02 (0.8-1.2); PARTIAL THROMBOPLASTIN TIME 24.5 secs (22-35.6); PROTHROMBIN TIME 10.7 secs (10.8-13.4)
[2023-06-30 23:03] LABS: ALBUMIN 3.1 g/dL (3.4-5.0); BILIRUBIN,DIRECT 0.1 mg/dL (0.0-0.3); TOTAL BILIRUBIN 0.2 mg/dL (0.0-1.0); TOTAL PROTEIN, SERUM 7.1 g/dL (6.4-8.2)
[2023-06-30 23:09] LABS: LACTIC ACID 1.6 mmol/L (0.4-2.0)
[2023-06-30 23:22] LABS: CALCIUM 8.2 mg/dL (8.5-10.1); CARBON DIOXIDE 26.1 mmol/L (21-32); CHLORIDE 109 mmol/L (98-107); CREATININE 1.3 mg/dL (0.6-1.3); GLUCOSE 77 mg/dL (74-106); POTASSIUM 4.1 mmol/L (3.5-5.1); SODIUM SERUM 144 mmol/L (136-145); UREA NITROGEN, BLOOD 27 mg/dL (7-18)
[2023-06-30] MEDS: NACL 0.9% 1,000 ML IV ONE (23:45)
[2023-07-01 00:17] VITALS: O2SAT 98
[2023-07-01] MEDS ORDERED: ACET-10509 PO (04:44)
[2023-07-01 04:57] VITALS: BP 116/57; PULSE 67; RESP 15; TEMP 97.9; O2SAT 98
== END 2023-07-01 04:57 | disposition home or self-care (01) ==
LOC: MED 21:50
DX: K76.89 Other specified diseases of liver (principal); D64.9 Anemia, unspecified; I10 Essential (primary) hypertension; Z79.899 Other long term (current) drug therapy; Z88.0 Allergy status to penicillin
CPT/HCPCS: 36415; 74176; 80048; 80076; 81003; 82550; 82553; 83605; 83690; 85025; 85610; 85730; 87040; 87086; 96360; 99285; J7030

== ENCOUNTER 2023-12-10 16:51 | Emergency (ER) | payer OTHER, MEDICAID ==
[~2023-12-10] VITALS: Ht 157.5 cm; Wt 45.4 kg
[~2023-12-10 16:51] MED LIST changes: +ACET500T99 PO; -AMLO2.5T PO; -CIPR500T4 PO; -CYCL-711 PO; -MEMA5TAB PO; +MEMA5TAB15 PO
[2023-12-10 17:02] VITALS: BP 140/78; PULSE 73; RESP 18; TEMP 98.6; O2SAT 98
[2023-12-10] MEDS ORDERED: FLUORESCEIN OPTH STRIP 1 MG ONE (17:11)
[2023-12-10 17:12] VITALS: BP 153/62; PULSE 65; TEMP 98.6; O2SAT 95
[2023-12-10] MEDS: FLUORESCEIN OPTH STRIP 1 MG OP ONE (17:14)
[2023-12-10] MEDS ORDERED: OFLO5SOL LEFT EYE (17:39)
== END 2023-12-10 18:08 | disposition home or self-care (01) ==
LOC: MED 16:51
DX: H10.9 Unspecified conjunctivitis (principal); I10 Essential (primary) hypertension; Z79.899 Other long term (current) drug therapy; Z88.0 Allergy status to penicillin
CPT/HCPCS: 99283